=== PATIENT | male | born 1965 | race Caucasian/White ===

== ENCOUNTER 2018-04-03 15:11 | Outpatient (CLI) | payer OTHER | END 2018-04-03 16:00 | disposition home or self-care (01) | LOC: NUCLEAR 15:11 | DX: M81.0 Age-related osteoporosis without current pathological fracture (principal); Z13.820 Encounter for screening for osteoporosis ==

== ENCOUNTER → 2020-05-28 | Outpatient (CLI) | payer OTHER | END | disposition home or self-care (01) | LOC: OFIC 805 13:45 | PROVIDERS: ATTEND Otolaryngology | DX: J03.80 Acute tonsillitis due to other specified organisms (principal); J30.89 Other allergic rhinitis; H60.8X3 Other otitis externa, bilateral; R49.0 Dysphonia ==

== ENCOUNTER → 2020-07-02 | Outpatient (CLI) | payer OTHER | END | disposition home or self-care (01) | LOC: OFIC 805 10:00 | PROVIDERS: ATTEND Otolaryngology | DX: J30.89 Other allergic rhinitis (principal); H60.8X3 Other otitis externa, bilateral; K21.9 Gastro-esophageal reflux disease without esophagitis ==

== ENCOUNTER → 2020-08-05 | Outpatient (CLI) | payer OTHER | END | disposition home or self-care (01) | LOC: OFIC 805 10:45 | PROVIDERS: ATTEND Otolaryngology | DX: H60.8X3 Other otitis externa, bilateral (principal) ==